=== PATIENT | female | born 1955 | race Asian ===

== ENCOUNTER 2017-07-31 07:48 | Emergency (ER) | payer SELFPAY ==
[2017-07-31 09:33] LABS: UA SPECIFIC GRAVITY 1.025 (1.005-1.035); microscopic required? YES; urine erythrocyte NEGATIVE (NEGATIVE)
[2017-07-31 11:27] VITALS: BP 125/79
== END 2017-07-31 11:36 | disposition home or self-care (01) ==
LOC: ED 07:48
PROVIDERS: Specialist
DX: R07.89 Other chest pain (principal); I10 Essential (primary) hypertension; M19.90 Unspecified osteoarthritis, unspecified site